=== PATIENT | male | born 1955 | race Caucasian/White ===

== ENCOUNTER 2020-10-08 21:00 | Emergency (ER) | payer OTHER ==
[~2020-10-08] VITALS: Ht 167.6 cm; Wt 77.1 kg
[2020-10-08] MEDS ORDERED: LOTREL 10-20 M1 EACH PO (21:12)
[2020-10-09] MEDS ORDERED: BACTRIM DS TAB1 EACH PO (01:31)
[2020-10-09] MEDS ORDERED: ACETAMINOPHEN650 M2 PO (01:31)
== END 2020-10-09 01:43 | disposition home or self-care (01) ==
LOC: ER 21:00
DX: S01.82XA Laceration with foreign body of other part of head, initial encounter (principal); W18.39XA Other fall on same level, initial encounter; Y93.89 Activity, other specified; Y92.091 Bathroom in other non-institutional residence as the place of occurrence of the external cause; Y99.8 Other external cause status